=== PATIENT | female | born 1980 | race Caucasian/White ===

== ENCOUNTER 2019-12-02 13:34 | Emergency (ER) | payer OTHER, SELFPAY ==
[2019-12-02 13:52] VITALS: BP 129/64; PULSE 64; RESP 16; TEMP 36.6; O2SAT 100
--- NOTE | 2019-12-02 14:19 | ED.FEMALEGU ---
HPI - Female Genitourinary General Chief complaint: Urogenital-Female Stated complaint: possible uti Time Seen by Provider: 12/02/19 14:19 Source: patient Mode of arrival: ambulatory Limitations: no limitations History of Present Illness HPI Narrative: Qiana Trujillo is a 39 yo [place] with no PMH who comes to express care for treatment of vaginal discharge that has been resistant to [id number] Diflucan/intravaginal OTC meds. 10 days ago she had sexual intercourse with a male she knows with reverse oral and penetrated penetrative behavior over the next time period of time and began to feel irritated at that moment she then had her menstrual cycle and post menstrual cycle started developing itching and burning initially with urination and then all the time. She come to treat on her own she has a Diflucan l from her [employer]UC[employer] ASSISTANT is here today with increased discharge Patient had chlamydia past and this does not appear to be the same presentation. Related Data Allergies Allergy/AdvReac Type Severity Reaction Status Date / Time No Known Allergies Allergy Verified 12/02/19 13:53 Review of Systems Review of Systems: Narrative: CONSTITUTIONAL: Denies fever, chills, sweats. EYES: Denies visual changes, redness, discharge. ENT: Denies rhinorrhea, congestion, sore throat, otalgia. CARDIOVASCULAR: Denies chest pain, palpitations, edema. RESPIRATORY: Denies dyspnea, wheezing, cough GASTROINTESTINAL: Denies abdominal pain, nausea, vomiting, diarrhea. GENITOURINARY: Denies dysuria, hematuria, has itching and burning in vaginal area with abnormal discharge SKIN: Denies rash or itching. NEUROLOGIC: Denies numbness, or focal weakness. PSYCHIATRIC: Denies anxiety or depression. [facility] Past Medical History Medical History No active medical problems Family History Family History Other No active medical problems Social History Social History (Updated 12/02/19 @ 14:24 by Shelia Hartman CNP) Smoking status: Never smoker Second hand tobacco smoke exposure: Yes Alcohol intake: current Gender identity (if verbalized by the patient): Female Comments At time of signature, I agree with nursing past medical, surgical, social and family history. There is no relevant family history pertinent to the presenting complaint. Exam Narrative: Exam Narrative: GENERAL: This is a well-nourished, well-developed patient, in mild distress. HEAD: normocephalic, atraumatic. EYES: Sclera clear/white. Vision is grossly intact. EARS: External ears normal, Hearing grossly intact. NOSE: External nose normal without nasal discharge, nares without redness, no rhinorrhea. THROAT: Mucous membranes moist, NECK: Neck supple, non-tender CARDIOVASCULAR: Regular rate and rhythm without murmurs, gallops, or rubs. RESPIRATORY: Clear to auscultation. Breath sounds equal bilaterally. No wheezes, rales, or rhonchi. GASTROINTESTINAL: Abdomen soft, SKIN: warm, intact with no suspicious lesions or rash, good texture and turgor. NEURO: awake, alert, and oriented to person, place and time. There were no obvious focal neurologic abnormalities. Steady gait EXTREMITIES: Normal range of motion. BACK: Nontender without deformity : Erythema of labia with mild erythema of vaginal vault moderate amount of thin white discharge in the vaginal vault with no CMT and no adnexal tenderness Course Course Emergency Course: Came to express care with possible UTI and vaginal discharge Pelvic exam showed a moderate amount of discharge that appeared to be more yeast; urine dipstick shows positive for UTI with 1+ leukocyte esterase Patient treated for UTI and vaginitis with Flagyl and cephalexin after discussion with patient about possibility of STDs the fact that she knew who she was living with and the situation which occurred decision was made to not treat her proactively
== END 2019-12-02 14:34 | disposition home or self-care (01) ==
PROVIDERS: Emergency Provider Nurse Practitioner; PCP Family Medicine
DX: N30.01 Acute cystitis with hematuria (principal); N76.0 Acute vaginitis
CPT/HCPCS: 81003; 87086; 87491; 87591; 87661; 99214; G0463